=== PATIENT | female | born 1995 | race Two or more races ===

== ENCOUNTER 2023-01-30 04:26 | Inpatient (IN) | payer OTHER ==
[~2023-01-30] VITALS: Ht 170.2 cm; Wt 73.9 kg
[2023-01-30 06:25] LABS: HEMATOCRIT 34.6 % (36.0-45.00); HEMOGLOBIN 11.9 g/dL (12.0-15.00); MEAN CELL VOLUME 89.8 fL (80.00-100.00); MEAN CORPUSCULAR HEMOGLOBIN 30.9 pg (27.00-32.0); MEAN CORPUSCULAR HGB CONC 34.4 g/dl (32.0-36.0); PLATELET COUNT 261 K/uL (150-450); RED BLOOD COUNT 3.85 M/uL (4.00-6.00); RED CELL DISTRIBUTION WIDTH 13.6 % (11.5-14.5)
[2023-01-30 06:31] LABS: URINE APPEARANCE Turbid; URINE BILIRRUBIN Negative (NEGATIVE); URINE BLOOD Negative; URINE COLOR Yellow; URINE GLUCOSE Negative (NEGATIVE); URINE LEUKOCYTE Negative; URINE NITRATE Negative; URINE PROTEIN Trace (NEGATIVE); URINE UROBILINOGEN 0.2 E.U./dl
[2023-01-30 06:35] LABS: URINE BACTERIA 592.1 uL (0.0-1933); URINE WBC 32.9 uL (0.0-23.2)
[2023-01-30 06:41] LABS: INR 0.96; PROTHROMBIN TIME 10.1 SECONDS (9.0-11.5)
[2023-01-30 06:43] LABS: URINE RBC 1.5 uL (0.0-20.8)
[2023-01-30 07:32] LABS: BILIRUBIN TOTAL 0.28 mg/dL (0.3-1.2); CALCIUM 8.9 mg/dL (8.5-10.1); CREATININE SERUM 0.52 mg/dL (0.55-1.02); GFR 141.45; GLOBULINA 3.7 G/DL (2.4-3.5); POTASSIUM 3.58 mEq/L (3.5-5.1); TOTAL PROTEIN 6.7 gm/dL (6.4-8.2)
[2023-01-30] MEDS ORDERED: PRENATAL TABLE1 EAC1 PO (07:46)
[2023-01-30 17:54] LABS: HEMATOCRIT 32.5 % (36.0-45.00); HEMOGLOBIN 11.1 g/dL (12.0-15.00); MEAN CELL VOLUME 89.6 fL (80.00-100.00); MEAN CORPUSCULAR HEMOGLOBIN 30.6 pg (27.00-32.0); MEAN CORPUSCULAR HGB CONC 34.1 g/dl (32.0-36.0); PLATELET COUNT 244 K/uL (150-450); RED BLOOD COUNT 3.63 M/uL (4.00-6.00); RED CELL DISTRIBUTION WIDTH 13.1 % (11.5-14.5)
== END 2023-02-01 14:52 | disposition home or self-care (01) | DRG 807 ==
LOC: OBS/DEL 04:26 → LDR 05:05 → OBS/DEL 05:05 → OB/GYN 05:05
PROVIDERS: ADMIT Obstetrics & Gynecology; ATTEND Obstetrics & Gynecology
PROC: 10E0XZZ Delivery of Products of Conception, External Approach (ICD-10-PCS; principal; 2023-01-30)
PROC: 0HQ9XZZ Repair Perineum Skin, External Approach (ICD-10-PCS; 2023-01-30)
PROC: 0UQG7ZZ Repair Vagina, Via Natural or Artificial Opening (ICD-10-PCS; 2023-01-30)
PROC: 0UQMXZZ Repair Vulva, External Approach (ICD-10-PCS; 2023-01-30)
PROC: 4A1HXCZ Monitoring of Products of Conception, Cardiac Rate, External Approach (ICD-10-PCS; 2023-01-30)
DX: O70.0 First degree perineal laceration during delivery (principal); O71.82 Other specified trauma to perineum and vulva; Z37.0 Single live birth; Z3A.37 37 weeks gestation of pregnancy; Z20.822 Contact with and (suspected) exposure to COVID-19